=== PATIENT | male | born 1950 | race Caucasian/White ===

== ENCOUNTER 2017-01-15 21:24 | Emergency (ER) | payer OTHER ==
[~2017-01-15] VITALS: Ht 175.3 cm; Wt 65.3 kg
[2017-01-16 00:18] LABS: CHLORIDE 106 mEq/L (99-109); POTASSIUM 3.4 mEq/L (3.7-5.4); SODIUM 140 mEq/L (136-147)
[2017-01-16 00:19] LABS: GLUCOSE 105 mg/dL (70-99); PROTHROMBIN TIME 10.3 (9.2-11.2); PTT 33.4 (25-32)
[2017-01-16 00:21] LABS: ANION GAP 11 MEQ/L (2-14)
[2017-01-16 00:23] LABS: GFR ESTIMATE (CALCULATED) > 59 mL/min/
[2017-01-16 00:24] LABS: UREA NITROGEN (BUN) 15 mg/dL (9-23)
[2017-01-16 00:30] LABS: TROP-I INTERPRETATION NEGATIVE; TROPONIN-I < 0.01 ng/mL (0.0-0.30)
[2017-01-16 00:39] LABS: MCH 30.5 PG (29.0-34.0); MCHC 33.8 G/DL (30.0-36.0); MCV 90.3 FL (86-99); MEAN PLAT.VOLUME 10.4 uM^3 (9.0-12.4); PLATELET COUNT 199 K/uL (156-360); RBC DIS.WIDTH-CV 12.4 % (11.8-14.6); RBC DIS.WIDTH-SD 41.4 % (39-53); RED BLOOD COUNT 4.43 M/uL (4.00-5.50)
[2017-01-16 01:57] VITALS: BP 164/95
== END 2017-01-16 01:57 | disposition home or self-care (01) ==
LOC: EME 21:24
PROVIDERS: Emergency Medicine
DX: E86.0 Dehydration (principal); I95.1 Orthostatic hypotension; R55 Syncope and collapse; I10 Essential (primary) hypertension; F17.200 Nicotine dependence, unspecified, uncomplicated
CPT/HCPCS: 71020; 80048; 83880; 84484; 85027; 85610; 85730; 93005; 99281; 99284